=== PATIENT | female | born 1985 | race Caucasian/White ===

== ENCOUNTER 2021-08-23 08:23 | Emergency (ER) | payer MEDICAID ==
[~2021-08-23] VITALS: Ht 177.8 cm; Wt 100.0 kg
[2021-08-23 08:32] VITALS: BP 129/90
[2021-08-23] MEDS ORDERED: amox tr/potassium clavulanate 875/125mg TAB PO ONE (09:25)
[2021-08-23] MEDS ORDERED: AMOX-117 PO (09:26)
== END 2021-08-23 09:39 | disposition home or self-care (01) ==
LOC: ER 08:23
DX: J02.0 Streptococcal pharyngitis (principal); Z87.891 Personal history of nicotine dependence
CPT/HCPCS: 99283

== ENCOUNTER 2023-06-05 04:59 | Emergency (ER) | payer BC, MEDICAID ==
[~2023-06-05] VITALS: Ht 177.8 cm; Wt 118.2 kg
[2023-06-05 05:02] VITALS: BP 127/84; PULSE 86; RESP 19; TEMP 98; O2SAT 99
[2023-06-05] MEDS ORDERED: ESCI20TA39 PO (08:59)
== END 2023-06-05 07:28 | disposition left against medical advice (07) ==
LOC: ER 04:59
DX: Z02.79 Encounter for issue of other medical certificate (principal); Z53.21 Procedure and treatment not carried out due to patient leaving prior to being seen by health care provider
CPT/HCPCS: 99281

== ENCOUNTER 2023-06-05 07:37 | Emergency (ER) | payer BC, MEDICAID ==
[~2023-06-05] VITALS: Ht 177.8 cm; Wt 116.4 kg
[2023-06-05] MEDS ORDERED: ESCI20TA39 PO (08:59)
[2023-06-05 09:26] VITALS: BP 116/88; PULSE 74; RESP 16; TEMP 98.6; O2SAT 10
== END 2023-06-05 09:33 | disposition home or self-care (01) ==
LOC: ER 07:37
DX: F10.10 Alcohol abuse, uncomplicated (principal); Y90.9 Presence of alcohol in blood, level not specified
CPT/HCPCS: 99281